=== PATIENT | female | born 2000 | race Two or more races ===

== ENCOUNTER 2023-12-01 13:06 | Emergency (ER) | payer OTHER ==
[~2023-12-01] VITALS: Ht 160 cm; Wt 46.7 kg
[2023-12-01] MEDS ORDERED: FAMOTIDINE/PF 20 MG/2 ML VIAL IV ONE (15:30)
[2023-12-01] MEDS ORDERED: ONDANSETRON HCL 2 MG/ML VIAL IV ONE (15:30)
[2023-12-01] MEDS ORDERED: 0.9 % SODIUM CHLORIDE 1,000 ML IV ONE (15:30)
[2023-12-01 15:55] LABS: HEMATOCRIT 40.5 % (36.0-45.00); HEMOGLOBIN 13.6 g/dL (12.0-15.00); MEAN CELL VOLUME 89.7 fL (80.00-100.00); MEAN CORPUSCULAR HEMOGLOBIN 30.1 pg (27.00-32.0); MEAN CORPUSCULAR HGB CONC 33.6 g/dl (32.0-36.0); PLATELET COUNT 225 K/uL (150-450); RED BLOOD COUNT 4.52 M/uL (4.00-6.00); RED CELL DISTRIBUTION WIDTH 13.6 % (11.5-14.5)
[2023-12-01 16:38] LABS: CALCIUM 9.4 mg/dL (8.5-10.1); CREATININE SERUM 0.71 mg/dL (0.55-1.02); GFR 102.94; POTASSIUM 3.77 mEq/L (3.5-5.1)
[2023-12-01 17:17] LABS: PH,URINE 5.5 (5.0-8.0); URINE APPEARANCE Clear; URINE BILIRRUBIN Negative (NEGATIVE); URINE BLOOD Large; URINE COLOR Yellow; URINE GLUCOSE Negative (NEGATIVE); URINE LEUKOCYTE Negative; URINE NITRATE Negative; URINE PROTEIN Negative (NEGATIVE); URINE UROBILINOGEN 0.2 E.U./dl
[2023-12-01 17:21] LABS: URINE BACTERIA 80.6 uL (0.0-1933); URINE EPITHELIAL CELLS 8.3 uL (0.0-38.8); URINE RBC 1435.8 uL (0.0-20.8); URINE WBC 17.9 uL (0.0-23.2)
[2023-12-01] MEDS ORDERED: ONDANSETRON HCL4 MG PO (19:13)
[2023-12-01] MEDS ORDERED: PEPCID AC20 MG PO (19:13)
== END 2023-12-01 19:20 ==
LOC: ER 13:06
PROVIDERS: Nurse Practitioner Family
DX: N94.6 Dysmenorrhea, unspecified (principal)